=== PATIENT | female | born 1965 | race Caucasian/White ===

== ENCOUNTER 2023-05-18 08:08 | Inpatient (IN) | payer OTHER, SELFPAY ==
[2023-05-18] VITALS (13 sets, daily range): BP systolic 118–159; BP diastolic 82–108
--- NOTE | 2023-05-18 07:00 | ED.GENMED ---
History of Present Illness
General
Chief Complaint: Abdominal Pain
Source: patient
Exam Limitations: none
Time Seen by Provider: 05/18/23 06:59
Nursing documentation reviewed up to this point in time: agreed with
Travel History
Have you had any contact with someone who has COVID-19?: No
Do you have any symptoms of coronavirus? Fever > 100 degrees, chills, cough, shortness of breath, sore throat, loss of taste or smell, muscle aches, or headache?: No
History of Present Illness
History of Present Illness:
Late entry seen immediately upon reviewing EKG
57-year-old female hypertension on losartan complaining of abdominal pain in her upper abdomen fairly severe just prior to arrival better now, nausea without vomiting does not go to the jaw or arm, no prior episodes,
Past History
Past History
ED Past Medical History: HTN; Negative CAD
ED Past Surgical History: Negative Cardiac
Social History
Tobacco: Non-smoker
Alcohol: None
Drug: None
Personal:
Living: with family
Employment: Employed
Family History
Family History: CAD
Review of Systems
Review of Systems
All Other Systems: Not applicable
EENT: Reports no symptoms
Cardiac: Reports chest pain
ABD/GI: Reports nausea
: Reports no symptoms
Musculoskeletal: Reports no symptoms
Skin: Reports no symptoms
Phy Exam
Physical Exam
Physical Exam:
Physical Exam
General: no apparent distress, not acutely ill
Neck: No jaundice
Heart: s1/s2 regular rate and rhythm, no murmur. equal radial pulses.
Lungs: no acute respiratory distress. clear bilaterally
Abdomen: Nontender
Neuro: alert and oriented. no focal neurological deficits
Skin: no rash
Psychiatric: well kept. interactive and cooperative
Extremities: no edema.
Scores
Heart Score for Chest Pain Patients
STEMI patient?: Yes
Course
Orders/Labs/Results
Orders:
Orders
05/18/23 06:37
Electrocardiogram (*1) Urgent
Reason for Study: Abdominal Pain
EKG- Treatment ONCE
05/18/23 06:51
Complete Blood Count/With Diff Urgent
Comprehensive Metabolic Panel Urgent
Lipase Urgent
PT/INR [Prothrombin Time] Urgent
Troponin I Urgent
05/18/23 06:57
Aspirin Chewable [Low Strength Aspirin] 324 mg .ROUTE .STK-MED ONE
Heparin 5,000 units .ROUTE .STK-MED ONE
Metoprolol [Lopressor] 5 mg .ROUTE .STK-MED ONE
Ticagrelor [Brilinta] 180 mg .ROUTE .STK-MED ONE
Abnormal Lab Results
05/18/23 05/18/23 05/18/23
06:51 07:15 07:24
WBC 12.6 H 10^3/uL
(4.8-10.8)
MCV 80.2 L fL
(81.0-99.0)
Plt Count 437 H 10^3/uL
(130-400)
Absolute Neuts (auto) 9.8 H 10^3/uL
(1.4-6.5)
Neutrophils % 77.6 H %
(42.2-75.2)
Lymphocytes % 16.8 L %
(20.5-51.1)
Glucose 187 H mg/dl
(70-99)
Alkaline Phosphatase 130 H U/L
(38-126)
Troponin I 1.730 H* ng/ml
POC ACT Low Range 205 H Seconds 377 H Seconds
(116-155) (116-155)
05/18/23 06:51
05/18/23 06:51
Vital Signs
Initial and Last Documented VS:
Initial Vital Signs
Temp Pulse Resp BP Pulse Ox
98.1 F 83 22 159/105 99
05/18/23 06:31 05/18/23 06:31 05/18/23 06:31 05/18/23 06:31 05/18/23 06:31
Last Documented Vital Signs
Temp Pulse Resp BP Pulse Ox
98.1 F 89 25 137/102 97
05/18/23 06:31 05/18/23 07:00 05/18/23 07:00 05/18/23 07:00 05/18/23 07:00
MDM/Problems Addressed
Differential Diagnosis Includes:
STEMI, LV aneurysm, pericarditis
MDM/Problems Addressed:
Abdominal pain
Chronic conditions affecting care: HTN
Acute Exacerbation and/or Progression of Chronic Illness: HTN
*Pulse Oximetry
Patient hypoxic: no
*EKG
Interpreted by ED Provider?: Yes
Interpretation: abnormal
Comparison EKG: changes noted
Heart Rate: 88
Rate: normal
Rhythm: sinus
Ischemia: ST elevation
*Personal Injury Attorney Interpretation
Rate: normal
Interpretation: normal
Heart Rate: 78
Rhythm: sinus
*Critical Care Note
Total Time (30-74mins, 75-104mins- exclusive of procedures): 30
Data Reviewed
Review of Other/Old Records Reveals: Other (Prior EKG)
Source: patient
Update Note
Update Note:
History consistent with ST segment elevation [place] severe epigastric pain which resolved EKG shows ST segment ovation's anteriorly with some Q waves Product Support Manager activated reviewed with community service manager given aspirin Brilinta heparin beta-gregory
ED Attending Note
-
Portions of this chart may have been created with voice recognition software.� Occasional wrong word or��sound alike� substitutions may have occurred due to the inherent limitations of voice recognition software.
Discharge Plan
Departure
Patient Disposition: Admit
Date of Disposition: 05/18/23
Time of Disposition: 07:05
Admit to: laboratory animal facility supervisor
Admit to doctor: virgen
Presentation/result/management discussed w/ accepting MD/DO: shira Vásquez
Patient with high blood pressure during this ER visit?: Yes
Discharge Problem:
ST elevation (STEMI) myocardial infarction
Interventions
Interventions:
*Risk Screen - Suicide Last Done: 05/18/23 06:31
*General Assessment Last Done: 05/18/23 06:31
*Neglect/Abuse Screening Last Done: 05/18/23 06:31
ED- Fall Risk Assessment Last Done: 05/18/23 06:31
*ED COVID-19 Vaccine History Last Done: 05/18/23 06:31
BX-Jsdzag-Rmnowciyrv Assessment Last Done: 05/18/23 06:50
[2023-05-18 07:11] LABS: INR 0.92; PT 12.3 Sec (11.4-14.6)
[2023-05-18 07:12] LABS: ALT (SGPT) 21 U/L (0-35); AST (SGOT) 27 U/L (14-36); Albumin 4.5 g/dl (3.5-5.0); Alkaline Phosphatase 130 U/L (38-126); Blood Urea Nitrogen 14 mg/dl (7-17); Calcium 9.6 mg/dl (8.4-10.2); Carbon Dioxide 22 mmol/L (22-30); Chloride 106 mmol/L (98-107); Glucose 187 mg/dl (70-99); Lipase 96 U/L (23-300); Potassium 3.7 mmol/L (3.5-5.1); Sodium 138 mmol/L (135-145); Total Bilirubin 0.8 mg/dl (0.2-1.3); Total Protein 8.1 g/dl (6.3-8.2); eGFR > 60.00
[2023-05-18 07:19] LABS: % Basophils 0.4 % (0-2); % Eosinophils 0.2 % (0-6); % Immature Granulocytes 0.2 % (0-0.5); % Lymphocytes 16.8 % (20.5-51.1); % Monocytes 4.8 % (1.7-9.3); % Neutrophils 77.6 % (42.2-75.2); Absolute Basophils 0.1 10^3/uL (0-0.2); Absolute Lymphocytes 2.1 10^3/uL (1.2-3.4); Absolute Monocytes 0.6 10^3/uL (0.1-0.6); Absolute Neutrophils 9.8 10^3/uL (1.4-6.5); Hematocrit 39.7 % (37.0-47.0); Hemoglobin 13.5 g/dL (12.0-16.0); Mean Corpuscular Hgb 27.3 pg (27.0-31.0); Mean Corpuscular Volume 80.2 fL (81.0-99.0); Mean Platelet Volume 8.9 fL (7.4-10.4); Nucleated Red Blood Cells % 0 %; Platelet Count 437 10^3/uL (130-400); Red Blood Cell Count 4.95 10^6/uL (4.20-5.40); Red Cell Dist. Width 13.4 % (11.5-14.5); White Blood Cell Count 12.6 10^3/uL (4.8-10.8)
[2023-05-18 07:20] LABS: ACT-LR - POC 205 Seconds (116-155)
[2023-05-18 07:32] LABS: ACT-LR - POC 377 Seconds (116-155)
[2023-05-18 07:51] LABS: ACT-LR - POC 269 Seconds (116-155)
[2023-05-18] MEDS: NSS 1000 IV (08:00)
--- NOTE | 2023-05-18 08:29 | HPS.HSE ---
Family Physician
-
PCP: Dane Hurst DO
CDY: None prior to admission, new to [facility]
Chief Complaint
-
abdominal pain/nausea
History of Present Illness
57 y/o white female, prior history HTN on losartan, presents with 1 week history of intermittent abdominal/epigastric pain, with associated nausea, no vomiting. She states it started last Sunday, about 7 days ago. This morning, it became
persistent and more intense. Denies cp/palps/dyspnea, no diaphoresis, LH/dizziness. Her friend drove her to ER. Initial EKG NSR w/anteroseptal Q waves and anterolateral ST elevations. First troponin 1.73. Given aspirin 324mg, heparin 5000u, and
brilinta 180mg, as well as zofran for nausea, and urgently brought to quality lab [facility]oc.
Medical History
Past Medical History
Past Medical History: Reports HTN and Hypercholesterolemia (no medications)
Past Surgical History: Reports None
Social History
Tobacco: Non-smoker
Alcohol: None
Drug: None
Personal: Single
Living: Alone
Employment: Employed
Family History
Family History: CAD, Cancer, Hypertension and Other (CVA)
Allergies / Home Medications
Allergies reflects when Allergies were last updated in [email or web address].
Home Medications with original date entered in [email or web address]
Allergy/Medication List:
NKDA
Losartan 100mg po QPM
Review of Systems
-
History Source: Patient
A 12 point ROS was completed and negative except as noted: Yes
Abdomen/GI: Reports Abdominal Pain and Nausea
Physical Exam
Vital Signs
Vital Signs
Temp Pulse Resp BP Pulse Ox
98.3 F 89 20 137/102 95
05/18/23 08:29 05/18/23 07:00 05/18/23 08:29 05/18/23 07:00 05/18/23 08:29
Physical Exam
General: Well Developed
HEENT: NormoCephalic
Respiratory: Clear and Non Labored Respirations
Cardiac: S1/S2 and Regular Rhythm
GI: Soft, Non Tender and Non Distended
Musculoskeletal: No Edema
Skin: Warm and Dry
Neuro: AO x 3
Laboratory Results
-
05/18/23 06:51
05/18/23 06:51
Laboratory Results
PT 12.3 Sec (11.4-14.6) 05/18/23 06:51
INR 0.92 05/18/23 06:51
Total Bilirubin 0.8 mg/dl (0.2-1.3) 05/18/23 06:51
AST 27 U/L (14-36) 05/18/23 06:51
ALT 21 U/L (0-35) 05/18/23 06:51
Alkaline Phosphatase 130 U/L (38-126) H 05/18/23 06:51
Troponin I 1.730 ng/ml H* 05/18/23 06:51
Lipase 96 U/L (23-300) 05/18/23 06:51
Data Reviewed
-
Medical Tests (Nuc Med, Echo, EKG etc): Image Personally Visualized and interpreted and Report Reviewed by me
Lab Data: Labs Reviewed by me and Discussed with Physician
Impression/Plan
-
IMPRESSION/PLAN:
Acute Anterior STEMI
s/p angioplasty/2 overlapping GENESIS to prox/mid LAD
admit IVU, monitor tele
Trop 1.7- trend to peak
echo today
DAPT w/asa, brilinta- CM to check cost
new start metoprolol xl 25/d, continue losartan 100mg/daily
new start atorvastatin 80/d- check lipid profile in AM
cardiac rehab consult
followup at [facility] arranged
HTN- elevated on arrival to er/lab
resume losartan, adding metoprolol
monitor trends
[2023-05-18] MEDS: KCL 40 MEQ PO (08:55)
[2023-05-18] MEDS: TOPROL XL 25 MG PO (08:55)
--- NOTE | 2023-05-18 09:13 | PTCARENOTE ---
patient arrived fro laborer livestock, STEMI thur the ER to laborer livestock, right radial R band intact, distal pulse palpable, IV NSS infusing without difficulties. patient placed on monitor NSR, VSS, patient voices no CP, SOB, Dizziness, abd. pain. oriented
patient to room and surroundings. elvira, her friend was called, will be in later to see patient. [phone].
--- NOTE | 2023-05-18 10:07 | CARDSERVLU ---
Echocardiogram with Lumason completed after protocol screening completed. Allergies verified.
Patent IV site: ___left hand__
IV site flushed with 0.9% NaCl pre and post administration.
Diluted bolus method utilized to enhance visualization of ventricular laguerre.
Total volume given: __2.0__ mL
Patient tolerated all procedures well without complications.
--- NOTE | 2023-05-18 11:58 | PTCARENOTE ---
Addendum entered by Eliz Hernandez RN 05/18/23 12:22:
EKG being done now as ordered and maalox po given as ordered.
Original Note:
patient voided in BR, returned to bed and c/o abdominal pain, TT Anna Ortiz NP
[2023-05-18] MEDS: MAALOX 30 ML PO (12:24)
--- NOTE | 2023-05-18 12:31 | CM ---
priced gayathri with pts [facility]- her copay is $30/month- $5 coapy card placed in pts red dc folder
--- NOTE | 2023-05-18 12:51 | CM ---
spoke to pt in room, she is prev indep, shares her home with a friend of hers in a 2 story home with 1 step to enter. she denies any dc planning needs or dme's. plan is for dc to home when medically stable.
--- NOTE | 2023-05-18 13:07 | PTCARENOTE ---
Addendum entered by Eliz Hernandez RN 05/18/23 13:31:
feeling nauseated, zofran IV given as ordered.
Original Note:
troponin 20.9, TT Anna Ortiz NP
[2023-05-18] MEDS: ZOFRAN 4 MG IV ×2 (13:27→19:33)
[2023-05-18] MEDS: FLUSH (NSS) 1 FLUSH IV (13:29)
--- NOTE | 2023-05-18 15:53 | W.PN.UPDATE ---
Update Note
Progress Note Update
PCP: Dr. Dane Hurst
Planning Aide: None prior to admission
Impression:
Acute Anterior STEMI
CAD
s/p overlapping GENESIS to prox/mid LAD 05/18/2023
Ischemic CM, EF 41%
Mild MR
HTN
HLD
Echo 05/18/2023: EF 41%, mid-distal anterior, mid-distal anteroseptal, apical, and apical inferior hypokinesis consistent with LAD territory infarct, mild cLVH, stage II diastolic dysfunction, mild MR, mild TR, estimated PAP 44 mmHg
Plan:
-Presented with chest pain and initial EKG revealed anteroseptal Q waves with ST elevations anterolaterally. Initial troponin 1.73.
-Given 324mg of aspirin, 180mg of Brilinta, and 5000 units of heparin and taken urgently to nursery laborer.
-Official cath report pending. Underwent overlapping GENESIS to the proximal/mid LAD 05/18/2023.
-Patient seen this afternoon, after catheterization. Remains chest pain free, although does have some abdominal pain/nausea. Zofran given.
-Continue DAPT with aspirin and Brilinta.
-Troponin trending upwards to 20.9, continue to trend to peak.
-Echo showed EF 41%. Will continue losartan 100mg daily which patient was on as OP. New to Toprol 25mg daily. Would add spironolactone 12.5mg daily in AM as long as BP tolerates.
-With EF 41%, follow volume status closely. Does not appear volume overloaded at this time.
-Was not on statin prior to admission. New to Lipitor 80mg daily.
-Check CVE, A1c in AM.
-Cardiac rehab consult.
-Continue to follow on telemetry.
HPI:57 y/o white female, prior history HTN on losartan, presents with 1 week history of intermittent abdominal/epigastric pain, with associated nausea, no vomiting. She states it started last Sunday, about 7 days ago. This morning, it became
persistent and more intense. Denies cp/palps/dyspnea, no diaphoresis, LH/dizziness. Her friend drove her to ER. Initial EKG NSR w/anteroseptal Q waves and anterolateral ST elevations. First troponin 1.73. Given aspirin 324mg, heparin 5000u, and
brilinta 180mg, as well as zofran for nausea, and urgently brought to nursery laborer.
--- NOTE | 2023-05-18 17:48 | ITS.CL.CATH ---
Bedspread Cutter - Catheterization
Cardiac Catheterization
Procedure Report:
LEFT HEART CATH AND CORONARY INTERVENTION
Date of Procedure: May 18, 2023
Referring: [facility] Emergency Department
PROCEDURES:
1. Left heart catheterization with coronary and single-plane left ventriculography
2. Successful stenting of the proximal to mid LAD with overlapping 2.75 x 38 mm and 3.0 x 23 mm Xience stents that were postdilated with a 3.25 mm noncompliant balloon.
INDICATION: This is a 53-year-old female with a past medical history notable for hypertension who presented to [facility] with a 1 week history of intermittent abdominal and epigastric discomfort with associated nausea. The morning of
admission her symptoms persisted and were much more intense leading her to seek medical attention at [facility]. Her initial electrocardiogram was notable for anterior ST segment elevation and she is now referred for emergent coronary
angiography.
ACCESS: Right radial artery, 6 Syriac sheath
HEMODYNAMICS (mmHg):
AO (s/d, m) : 119/85
LV (s/d) : 127/18
LVEDP : 28
CORONARY FINDINGS
Dominance: Right
LEFT MAIN: Normal
LEFT ANTERIOR DESCENDING: The LAD arises normally from the left main and has a smooth 50% proximal narrowing leading into a 90% mid LAD stenosis just before the first diagonal branch with 50% stenosis extending beyond the second diagonal branch.
Both the first and second diagonal branches arise close to 1 another from the mid LAD. The remainder of the LAD has only minor irregularities
CIRCUMFLEX: The circumflex is a medium caliber nondominant vessel giving rise to a small caliber OM 1. The mid circumflex beyond OM1 has tandem 50-60% stenoses. OM 2 has a 50% ostial stenosis. The circumflex terminates in a small posterolateral
branch.
RIGHT CORONARY: The right coronary artery is a dominant vessel with a 30% proximal stenosis and 30% mid stenosis. The PDA is widely patent. The posterolateral branch is small
VENTRICULOGRAPHY: Left venography was performed in an BOCANEGRA projection. The digital single-plane left ventricular ejection fraction is visually estimated at 40% with anterolateral and distal anterior/apical hypokinesis
ANGIOPLASTY PROCEDURE DETAIL: Upon review of the diagnostic catheterization films the decision was made to proceed with percutaneous revascularization of the high-grade proximal to mid LAD stenosis. The patient received 180 mg loading dose of
ticagrelor in the emergency department. Intravenous heparin was administered and the ACT was monitored throughout the procedure. The origin of the left main was cannulated with an EBU 3.5 guiding catheter and a BMW guidewire was advanced to the
distal LAD. Balloon predilation was performed with a 2.0 x 20 mm Trek balloon. A 2.75 x 38 mm Xience stent was then advanced over the guidewire and positioned with angiographic and fluoroscopic guidance. The stent was implanted at nominal
pressures. A 3.0 x 23 mm Xience stent was then positioned proximal to and overlapping with mid LAD stent. Transient slow flow improved with adenosine. The entire stented segment was postdilated with a 3.25 mm noncompliant balloon with an
excellent angiographic result
RADIATION SUMMARY: Fluoro Time (min): 10.3, Dose (mGy): 455.7, DAP (Gy.cm2) : 31.9
CONCLUSIONS
1. Acute anterior wall myocardial infarction treated with successful placement of overlapping 3.0 x 23 mm and 2.75 x 38 mm Xience stents that were postdilated with a 3.25 mm noncompliant balloon
2. Mild LV dysfunction with a visually estimated ejection fraction of 40% with anterolateral and distal anterior hypokinesis
RECOMMENDATIONS
1. Uninterrupted dual antiplatelet therapy
2. High intensity statin therapy.
3. Will check hemoglobin A1c
4. Initiate oral beta-gregory and WAYNE inhibitor
5. Will check echocardiogram
6. Trend serial troponin levels
Copy to: Dr. Rafael Vásquez
--- NOTE | 2023-05-18 18:09 | PTCARENOTE ---
patient still feels nausea therefore would like to wait for her 1800 medications.
--- NOTE | 2023-05-18 18:33 | PTCARENOTE ---
troponin 29.6, Dr. Vásquez on floor aware that patient is still nauseated.
[2023-05-18] MEDS: FLUSH (NSS) 2 FLUSH IV (19:34)
[2023-05-18] MEDS: LIPITOR 80 MG PO (22:32)
[2023-05-18] MEDS: BRILINTA 90 MG PO (22:32)
[2023-05-18] MEDS: COZAAR 100 MG PO (22:33)
[2023-05-18] MEDS: LOVENOX 40 MG SC (22:34)
--- NOTE | 2023-05-18 23:57 | PTCARENOTE ---
Nausea continued thru most of the evening. Around 2230 patient felt alot better, nausea gone and pain-free. She was able to take all her evening and HS meds at that time. Consumed box lunch without any nausea or pain. SR, ST on the monitor 99-103.
[2023-05-19] VITALS (11 sets, daily range): BP systolic 73–133; BP diastolic 51–102
[2023-05-19 04:46] LABS: Blood Urea Nitrogen 9 mg/dl (7-17); Calcium 9.5 mg/dl (8.4-10.2); Carbon Dioxide 23 mmol/L (22-30); Chloride 102 mmol/L (98-107); Glucose 127 mg/dl (70-99); HDL Cholesterol 41 mg/dl; LDL Cholesterol, Calculated 115 mg/dl; Potassium 4.2 mmol/L (3.5-5.1); Sodium 137 mmol/L (135-145); Total Cholesterol 188 mg/dl (50-199); Triglyceride 163 mg/dl (10-149); Very Low Density Lipoprotein 32 mg/dl (0-30); eGFR > 60.00
[2023-05-19 04:47] LABS: Hematocrit 40.9 % (37.0-47.0); Hemoglobin 13.7 g/dL (12.0-16.0); Mean Corp Hgb Conc. 33.5 g/dL (33.0-37.0); Mean Corpuscular Hgb 27.6 pg (27.0-31.0); Mean Corpuscular Volume 82.3 fL (81.0-99.0); Mean Platelet Volume 9.1 fL (7.4-10.4); Platelet Count 471 10^3/uL (130-400); Red Blood Cell Count 4.97 10^6/uL (4.20-5.40); Red Cell Dist. Width 13.5 % (11.5-14.5)
[2023-05-19] MEDS: LOW STRENGTH ASPIRIN 81 MG PO (09:30)
[2023-05-19] MEDS: PROTONIX 40 MG PO (09:30)
[2023-05-19 09:31] LABS: Glycohemoglobin (HgbA1c) 5.9 % (4.0-5.6)
[2023-05-19] MEDS: BRILINTA 90 MG PO ×2 (09:31→20:32)
[2023-05-19] MEDS: TOPROL XL 25 MG PO (09:31)
--- NOTE | 2023-05-19 10:07 | PTCARENOTE ---
Resume pt care in AM. Pt AAO x 4, denies pain/discomfort, on RA with normal WOB, NSR. Pt up ad suman, tolerating activity. See MAR.
--- NOTE | 2023-05-19 11:15 | W.PN.CARDCBS ---
Addendum entered and electronically signed by Kaveh Day MD 05/19/23 12:13:
I saw and examined the patient.
The Principal Secretary's note was reviewed and I agree with the note.
Comment: Briefly, 57-year-old woman presenting with acute anterior STEMI on 05/18/2023 and underwent placement of drug-eluting stent to the mid LAD
Transthoracic echocardiogram with reduced left ventricular ejection fraction of 41% and LAD territory wall motion abnormality
Overall she is doing well from a cardiovascular standpoint, has been walking the halls without chest discomfort or shortness of breath. No lightheadedness or dizziness as well.
Physical exam without evidence of mechanical complication or decompensated heart failure
Telemetry reviewed which shows sinus rhythm.
Explained the importance of dual antiplatelet therapy for 1 year and then lifelong baby aspirin
Started on high intensity statin and beta-gregory
Continue home losartan
Cardiac rehab referral
Original Note:
Today's Communication / Plan
-
Feeling well, continue losartan and toprol
Assess cost of Jardiance and Entresto
Continue DAPT
Follow on telemetry.
Impression / Plan
-
PCP: Dr. Dane Hurst
Roofing Subcontractor: None prior to admission
Impression:
Acute Anterior STEMI
CAD
s/p overlapping GENESIS to prox/mid LAD 05/18/2023
Ischemic CM, EF 41%
Mild MR
HTN
HLD
Echo 05/18/2023: EF 41%, mid-distal anterior, mid-distal anteroseptal, apical, and apical inferior hypokinesis consistent with LAD territory infarct, mild cLVH, stage II diastolic dysfunction, mild MR, mild TR, estimated PAP 44 mmHg
Plan:
-Presented with chest pain and initial EKG revealed anteroseptal Q waves with ST elevations anterolaterally. Initial troponin 1.73.
-Underwent overlapping GENESIS to the proximal/mid LAD 05/18/2023.
-Patient seen in AM. Remains chest pain free and abdominal pain/nausea is resolved.
-Continue DAPT with aspirin and Brilinta.
-Troponin peaked at 29.6, trending down thereafter.
-Echo showed EF 41%. Will continue losartan 100mg daily for now which patient was on as OP. New to Toprol 25mg daily.
-Will have CM assess the cost of Entresto 24/26mg BID and Jardiance 10mg daily and consider transitioning if affordable.
-With EF 41%, follow volume status closely. Does not appear volume overloaded at this time.
-Was not on statin prior to admission. New to Lipitor 80mg daily. LDL 115.
-A1c 5.9%.
-Eventual cardiac rehab.
HPI:57 y/o white female, prior history HTN on losartan, presents with 1 week history of intermittent abdominal/epigastric pain, with associated nausea, no vomiting. She states it started last Sunday, about 7 days ago. This morning, it became
persistent and more intense. Denies cp/palps/dyspnea, no diaphoresis, LH/dizziness. Her friend drove her to ER. Initial EKG NSR w/anteroseptal Q waves and anterolateral ST elevations. First troponin 1.73. Given aspirin 324mg, heparin 5000u, and
brilinta 180mg, as well as zofran for nausea, and urgently brought to laboratory administrative director.
Progress Note - Roofing Subcontractor
Subjective
Date of Service: May 19, 2023
Feeling well. No complaints. No chest pain or abdominal pain.
Objective
Labs:
05/19/23 03:52
05/19/23 03:52
Labs
Hgb 13.7 g/dL (12.0-16.0) 05/19/23 03:52
Hct 40.9 % (37.0-47.0) 05/19/23 03:52
Plt Count 471 10^3/uL (130-400) H 05/19/23 03:52
PT 12.3 Sec (11.4-14.6) 05/18/23 06:51
INR 0.92 05/18/23 06:51
Sodium 137 mmol/L (135-145) 05/19/23 03:52
Potassium 4.2 mmol/L (3.5-5.1) 05/19/23 03:52
BUN 9 mg/dl (7-17) 05/19/23 03:52
Creatinine 0.7 mg/dL (0.6-1.0) 05/19/23 03:52
Glucose 127 mg/dl (70-99) H 05/19/23 03:52
Troponins
05/18/23 05/18/23 05/18/23
06:51 12:16 17:45
Troponin I 1.730 H* 20.900 H* D 29.600 H* D
05/19/23
00:02
Troponin I 18.500 H* D
Vital Signs and I&O:
Vital Signs
Temp Pulse Resp BP Pulse Ox
98.2 F 97 16 105/75 95
05/19/23 06:48 05/19/23 10:00 05/19/23 06:48 05/19/23 06:49 05/19/23 06:48
Vital Signs
Temp Pulse Resp BP Pulse Ox
98.2 F 97 16 105/75 95
05/19/23 06:48 05/19/23 10:00 05/19/23 06:48 05/19/23 06:49 05/19/23 06:48
Physical Exam
Physical Exam
GEN: No distress, awake, alert, oriented x3
HEENT: supple, anicteric, mmm
LUNGS: CTA b/l, no wheezes/rales
CV: Reg, S1/S2, no murmur
EXT: No clubbing, cyanosis, or edema
NEURO: Gross non-focal
SKIN: Warm, dry, no rash
[2023-05-19] MEDS: LIPITOR 80 MG PO (18:14)
[2023-05-19] MEDS: COZAAR 100 MG PO (18:14)
[2023-05-19] MEDS: LOVENOX 40 MG SC (18:15)
[2023-05-20 04:25] VITALS: BP 95/64
[2023-05-20 05:01] LABS: Hematocrit 38.4 % (37.0-47.0); Hemoglobin 12.6 g/dL (12.0-16.0); Mean Corp Hgb Conc. 32.8 g/dL (33.0-37.0); Mean Corpuscular Hgb 27.3 pg (27.0-31.0); Mean Corpuscular Volume 83.3 fL (81.0-99.0); Mean Platelet Volume 8.8 fL (7.4-10.4); Platelet Count 428 10^3/uL (130-400); Red Blood Cell Count 4.61 10^6/uL (4.20-5.40); Red Cell Dist. Width 13.4 % (11.5-14.5); White Blood Cell Count 12.4 10^3/uL (4.8-10.8)
[2023-05-20 05:24] LABS: Blood Urea Nitrogen 19 mg/dl (7-17); Calcium 9.3 mg/dl (8.4-10.2); Carbon Dioxide 24 mmol/L (22-30); Chloride 101 mmol/L (98-107); Glucose 109 mg/dl (70-99); Potassium 4.2 mmol/L (3.5-5.1); Sodium 136 mmol/L (135-145); eGFR > 60.00
[2023-05-20 08:27] VITALS: BP 102/61
[2023-05-20] MEDS: LOW STRENGTH ASPIRIN 81 MG PO (09:09)
[2023-05-20] MEDS: BRILINTA 90 MG PO (09:09)
[2023-05-20] MEDS: PROTONIX 40 MG PO (09:10)
[2023-05-20] MEDS: TOPROL XL 25 MG PO (09:10)
[2023-05-20 12:00] VITALS: BP 108/61
--- NOTE | 2023-05-20 12:52 | W.PN.CARDCBS ---
Addendum entered and electronically signed by Yesica Deras PA-C 05/21/23 14:50:
[id number]
Original Note:
Today's Communication / Plan
-
If she remains asymptomatic, tentative discharge this afternoon
Outpatient cardiology follow-up has been arranged
Impression / Plan
-
PCP: Dr. Dane Hurst
Assistant City Attorney: None prior to admission
Impression:
Acute Anterior STEMI
CAD
s/p overlapping GENESIS to prox/mid LAD 05/18/2023
Ischemic CM, EF 41%
Mild MR
HTN
HLD
Echo 05/18/2023: EF 41%, mid-distal anterior, mid-distal anteroseptal, apical, and apical inferior hypokinesis consistent with LAD territory infarct, mild cLVH, stage II diastolic dysfunction, mild MR, mild TR, estimated PAP 44 mmHg
Plan:
-Presented with chest pain and initial EKG revealed anteroseptal Q waves with ST elevations anterolaterally. Initial troponin 1.73.
-Underwent overlapping GENESIS to the proximal/mid LAD 05/18/2023
-Remains chest pain free and abdominal pain/nausea is resolved
-Troponin peaked at 29.6, trending down thereafter
-Echo showed EF 41%
-No arrhythmias on telemetry
-No evidence of decompensated heart failure or mechanical complication of AL based on history or physical exam
-Continue DAPT with aspirin and Brilinta
-New to Toprol 25mg daily
-New to Lipitor 80mg daily
-Decrease home losartan dose to 25 mg daily with BP running on the low side
-With reduced LVEF 41% follow volume status closely, discussed warning signs of CHF
-Eventual cardiac rehab
HPI:57 y/o white female, prior history HTN on losartan, presents with 1 week history of intermittent abdominal/epigastric pain, with associated nausea, no vomiting. She states it started last Sunday, about 7 days ago. This morning, it became
persistent and more intense. Denies cp/palps/dyspnea, no diaphoresis, LH/dizziness. Her friend drove her to ER. Initial EKG NSR w/anteroseptal Q waves and anterolateral ST elevations. First troponin 1.73. Given aspirin 324mg, heparin 5000u, and
brilinta 180mg, as well as zofran for nausea, and urgently brought to label rewinder.
Progress Note - Assistant City Attorney
Subjective
Date of Service: May 20, 2023
No acute overnight events. She is resting comfortably this morning in bed. Has been up ambulating the halls without lightheadedness or dizziness. No chest discomfort or recurrence of her abdominal pain. No lower extremity edema.
Objective
Labs:
05/20/23 04:31
05/20/23 04:31
Labs
Hgb 12.6 g/dL (12.0-16.0) 05/20/23 04:31
Hct 38.4 % (37.0-47.0) 05/20/23 04:31
Plt Count 428 10^3/uL (130-400) H 05/20/23 04:31
PT 12.3 Sec (11.4-14.6) 05/18/23 06:51
INR 0.92 05/18/23 06:51
Sodium 136 mmol/L (135-145) 05/20/23 04:31
Potassium 4.2 mmol/L (3.5-5.1) 05/20/23 04:31
BUN 19 mg/dl (7-17) H 05/20/23 04:31
Creatinine 1.0 mg/dL (0.6-1.0) 05/20/23 04:31
Glucose 109 mg/dl (70-99) H 05/20/23 04:31
Troponins
05/18/23 05/18/23 05/18/23
06:51 12:16 17:45
Troponin I 1.730 H* 20.900 H* D 29.600 H* D
05/19/23
00:02
Troponin I 18.500 H* D
Vital Signs and I&O:
Vital Signs
Temp Pulse Resp BP Pulse Ox
98.7 F 85 20 102/61 97
05/20/23 12:01 05/20/23 10:00 05/20/23 12:01 05/20/23 09:10 05/20/23 12:01
Vital Signs
Temp Pulse Resp BP Pulse Ox
98.7 F 85 20 102/61 97
05/20/23 12:01 05/20/23 10:00 05/20/23 12:01 05/20/23 09:10 05/20/23 12:01
Intake & Output
05/18/23 05/19/23 05/20/23 05/21/23
06:59 06:59 06:59 06:59
Intake Total 480 / 480
Balance 480 / 480
Physical Exam
Physical Exam
Gen: NAD, AAOx3
HEENT: NC/AT, sclera anicteric
Neck: No JVD
CV: RRR, NL s1/s2, no M/R/G
Lungs: CTAB
Abd: S/ND
Ext: No LE edema
Skin: Warm, dry
Neuro: Non-focal
== END 2023-05-20 15:44 | disposition home or self-care (01) | DRG 321 ==
LOC: IVU 08:08
PROVIDERS: Nurse Practitioner Adult Health; ADMITTING PHYSICIAN Internal Medicine Interventional Cardiology; EMERGENCY PHYSICIAN Emergency Medicine; FAMILY PHYSICIAN Family Medicine
PROC: B2151ZZ Fluoroscopy of Left Heart using Low Osmolar Contrast (ICD-10-PCS; 2023-05-18)
PROC: 027035Z Dilation of Coronary Artery, One Artery with Two Drug-eluting Intraluminal Devices, Percutaneous Approach (ICD-10-PCS; 2023-05-18)
PROC: 4A023N7 Measurement of Cardiac Sampling and Pressure, Left Heart, Percutaneous Approach (ICD-10-PCS; 2023-05-18)
PROC: B2111ZZ Fluoroscopy of Multiple Coronary Arteries using Low Osmolar Contrast (ICD-10-PCS; 2023-05-18)
DX: I25.10 Atherosclerotic heart disease of native coronary artery without angina pectoris (principal); I21.09 ST elevation (STEMI) myocardial infarction involving other coronary artery of anterior wall; I10 Essential (primary) hypertension; I25.5 Ischemic cardiomyopathy; E78.00 Pure hypercholesterolemia, unspecified
CPT/HCPCS: 80048; 80053; 80061; 83036; 83690; 84484; 85025; 85027; 85347; 85610; 93005; 93306; 93458; 99291; C1725; C1769; C1874; C1894; C9606; J0153; Q9950; Q9967

== ENCOUNTER → 2023-08-01 16:58 | Outpatient (REF) | payer OTHER, SELFPAY | LOC: RCS 16:58 | PROVIDERS: ATTENDING PHYSICIAN Physician Assistant Medical; FAMILY PHYSICIAN Family Medicine | DX: I21.09 ST elevation (STEMI) myocardial infarction involving other coronary artery of anterior wall (principal) | CPT/HCPCS: 93306 ==